=== PATIENT | female | born 1960 | race Caucasian/White ===

== ENCOUNTER 2021-01-10 08:00 | Inpatient (IN) ==
[2021-01-18] MEDS ORDERED: Buffered Lidocaine 1% SYRIN 1 ml INTRADERM ONE (06:00)
[2021-01-18] MEDS ORDERED: Lactated Ringers 1000 ml BAG 1,000 ML IV SCH ×2 (06:00→10:00)
[2021-01-18] MEDS ORDERED: ceFAZolin 2 GM PREMIX 2 GM/50 ML BAG ONE (06:07)
[2021-01-18] MEDS ORDERED: Lidocaine 2% PF 5 ML VIAL ONE (07:18)
[2021-01-18] MEDS ORDERED: Midazolam 2 mg/2 ml VIAL 1 mg/ml 2 ml VIAL (2 mg) ONE (07:19)
[2021-01-18] MEDS ORDERED: fentaNYL 100 mcg/2 ml 50 MCG/ML VIAL ONE (07:19)
[2021-01-18] MEDS ORDERED: Propofol 10 mg/ml 100 ML BTL 100 ML ONE (07:21)
[2021-01-18] MEDS ORDERED: Sodium Chloride 0.9% 10 ML ONE (07:30)
[2021-01-18] MEDS ORDERED: Propofol 10 MG/ML 20 ML BTL ONE (07:30)
[2021-01-18] MEDS ORDERED: Phenylephrine 40 mcg/mL 10mL (400mcg) SYRINGE ONE (08:33)
[2021-01-18] MEDS ORDERED: EPHEDrine (Pressors) 50 MG/ML VIAL ONE (08:33)
[2021-01-18] MEDS ORDERED: Lactulose 30 ml UDC PO PRN (09:43)
[2021-01-18] MEDS ORDERED: Ondansetron 4 mg VIAL 2 MG/ML 2 ml VIAL IV PRN (09:43)
[2021-01-18] MEDS ORDERED: Magnesium Hydroxide LIQ 30 ML UDC PO PRN (09:43)
[2021-01-18] MEDS ORDERED: diPHENhydraMINE IV 50 MG/ML 1 ml VIAL (BENADRYL) IV PRN (09:43)
[2021-01-18] MEDS ORDERED: Ondansetron ODT 4 mg TAB 4 MG TAB PO PRN (09:43)
[2021-01-18] MEDS ORDERED: diPHENhydraMINE 25 mg TAB PO PRN (09:43)
[2021-01-18] MEDS ORDERED: Morphine 2 MG/ML SYRINGE IV PRN (09:43)
[2021-01-18] MEDS: ceFAZolin 1 GM ADVAN 1 GM in NS 0.9% 50 ML 50 ML IVPB SCH ×2 (15:34→23:46)
[2021-01-18] MEDS: Magnesium Hydroxide LIQ 30 ML UDC PO SCH (21:15)
[2021-01-19 05:11] LABS: Hematocrit 32 % (35-47); Hemoglobin 11.2 g/dL (12.0-16.0); Mean Platelet Volume 6.8 fL (7.4-10.4); Platelet Count 178 10^3/uL (150-450)
[2021-01-19 05:29] LABS: Calcium 8.3 mg/dL (8.6-10.3); EGFR African American 135.5 (>60)
[2021-01-19] MEDS: ceFAZolin 1 GM ADVAN 1 GM in NS 0.9% 50 ML 50 ML IVPB SCH (08:07)
[2021-01-19] MEDS: Magnesium Hydroxide LIQ 30 ML UDC PO SCH (08:09)
[2021-01-19] MEDS ORDERED: Vitamin THERAPEUTIC TAB PO SCH (09:00)
[2021-01-19 11:57] VITALS: BP 133/67
[2021-01-25] MEDS ORDERED: Alendronate 70 mg TAB (NF) PO SCH (06:00)
== END 2021-01-19 13:00 | disposition home or self-care (01) | DRG 301 ==
LOC: AA 01-18 06:05 → SSU 01-18 09:43
PROVIDERS: ADMIT Orthopaedic Surgery Adult Reconstructive Orthopaedic Surgery; ATTEND Orthopaedic Surgery Adult Reconstructive Orthopaedic Surgery